=== PATIENT | female | born 1980 | race Caucasian/White ===

== ENCOUNTER 2019-11-24 16:54 | Emergency (ER) | payer OTHER, MEDICAID, SELFPAY ==
[2019-11-24 16:58] VITALS: BP 127/80; PULSE 77; RESP 16; TEMP 37; O2SAT 100
--- NOTE | 2019-11-24 17:02 | DI.US.S_ITS ---
PROCEDURE: US PERIPH VENOUS LOW EXTREM RT INDICATIONS: r/o dvt TECHNIQUE: Real-time imaging, as well as color and pulse Doppler interrogation, were performed of the lower extremity deep veins from the inguinal ligament to the popliteal fossa. COMPARISON: None. FINDINGS: The common femoral, femoral and popliteal veins are normally compressible, and free of intraluminal thrombus. Color and pulse Doppler demonstrate normal phasic intraluminal flow. There is normal augmentation response to distal compression maneuver. There is an irregularly marginated anechoic fluid collection within the lateral aspect of the popliteal fossa which measures 2.9 x 6.8 x 3.1 cm. IMPRESSION: 1. No deep vein thrombosis of the right lower extremity. 2. Right Hutton's cyst. Dictated by: Rosemary Garcia M.D. on 11/24/2019 at 17:42 Approved by: Rosemary Garcia M.D. on 11/24/2019 at 17:44
--- NOTE | 2019-11-24 18:23 | ED.EXTPRO ---
HPI - Extremity Problem General Chief complaint: Extremity Problem,Nontraumatic Stated complaint: thinks she has a blood clot right leg, recent surg Time Seen by Provider: 11/24/19 18:02 Source: patient Mode of arrival: Ambulatory Limitations: no limitations History of Present Illness HPI Narrative: 39-year-old female recently had a tonsillectomy here for evaluation of swelling and pain to her right lower extremity/right calf. She is concerned about a blood clot. No skin changes. No fevers. No chest pain. No shortness of breath. Related Data Home Medications Medication Instructions Recorded Confirmed acetaminophen [Pain Reliever Extra 500 mg PO Q4-6H PRN 11/24/19 11/24/19 Strength] bupropion HCl 300 mg PO DAILY 11/24/19 11/24/19 cholecalciferol (vitamin D3) 1,000 unit PO DAILY 11/24/19 11/24/19 ergocalciferol (vitamin D2) 50,000 unit PO QWEEK 11/24/19 11/24/19 [Vitamin D2] escitalopram oxalate 20 mg PO DAILY 11/24/19 11/24/19 gabapentin 600 mg PO TID 11/24/19 ibuprofen 600 mg PO Q4H PRN 11/24/19 11/24/19 lidocaine HCl [Lidocaine Viscous] 11/24/19 nicotine 14 mg TOPICAL DAILY 11/24/19 11/24/19 ondansetron 4 mg PO BID 11/24/19 11/24/19 oxycodone 5 mg PO Q4-6H PRN 11/24/19 11/24/19 sennosides [Senna Laxative] 17.2 mg PO DAILY 11/24/19 11/24/19 Previous Rx's Medication Instructions Recorded lidocaine HCl [Lidocaine Viscous] 1 applictn MM TID PRN #100 ml 11/24/19 Allergies Allergy/AdvReac Type Severity Reaction Status Date / Time codeine [CODEINE] Allergy Unknown Unverified 03/12/18 12:35 Review of Systems Constitutional Constitutional: Denies fever(s) and Denies headache(s) ENT Ears, Nose, Mouth, and Throat: Denies headache(s) Cardiovascular Cardiovascular: Denies chest pain and Denies dyspnea Respiratory Respiratory: Denies dyspnea Gastrointestinal Gastrointestinal: Denies abdominal pain, Denies nausea and Denies vomiting Musculoskeletal Musculoskeletal: Denies myalgias and Denies arthralgias Comments: Swelling right lower extremity Integumentary/Breasts Skin/Breast: Denies rash Neurologic Neurologic: Denies behavioral changes and Denies headache(s) Psychiatric Psychiatric: Denies behavioral changes Hematologic/Lymphatic Hematologic/Lymphatic: Denies easy bleeding and Denies easy bruising Patient History Medical History Allergic reaction (Inactive) Radial head fracture, closed (Inactive) Social History Smoking Status: Current every day smoker Smoking Status: Current every day smoker alcohol intake frequency: a few times a week Exam Initial Vital Signs Initial Vital Signs: Vital Signs Temperature 98.6 F 11/24/19 16:58 Pulse Rate 77 11/24/19 16:58 Respiratory Rate 16 11/24/19 16:58 Blood Pressure 127/80 11/24/19 16:58 Pulse Oximetry 100 11/24/19 16:58 Const General: cooperative, healthy appearing, comfortable and well developed Resp Effort & Inspection: normal respiratory effort Cardio Rate: regular rate Pulses: dorsalis pedis present on the right Skin Lesions: no lesions Rashes: no rashes Neuro General: alert and awake Speech: speech normal Gait: normal gait Sensory Exam: no sensory deficits noted Extrem Other: Patient with swelling to the right lower extremity from the knees to the mid foot. Says more than the left lower extremity. Has 1+ pitting edema. Psych Appearance: grossly normal and well kempt Course Orders Ordered: ED Orders 11/24/19 17:02 US periph venous low extrem rt Stat Vital Signs Vital signs: Vital Signs - 8 hr 11/24/19 16:58 Temperature 98.6 F Pulse Rate 77 Respiratory Rate 16 Blood Pressure 127/80 Pulse Oximetry 100 MDM - Extremity (Nontraumatic) Imaging Data US - DVT: Radiologist's Impression: [address] [address] Ultrasound Report Signed Patient: Arnol Burnham#: [id number] : 1980Acct:[id number] Age/Sex: 39 / FDate of Service: 11/24/19 Loc: ED Accession Number: [id number] Procedure: US periph venous low extrem rt Ordering Provider: Mei Coyle MD PROCEDURE: US PERIPH VENOUS LOW EXTREM RT INDICATIONS: r/o dvt TECHNIQUE: Real-time imaging, as well as color and pulse Doppler interrogation, were performed of the lower extremity deep veins from the inguinal ligament to the popliteal fossa. COMPARISON: None. FINDINGS: The common femoral, femoral and popliteal veins are normally compressible, and free of intraluminal thrombus. Color and pulse Doppler demonstrate normal phasic intraluminal flow. There is normal augmentation response to distal compression maneuver. There is an irregularly marginated anechoic fluid collection within the lateral aspect of the popliteal fossa which measures 2.9 x 6.8 x 3.1 cm. IMPRESSION: 1. No deep vein thrombosis of the right lower extremity. 2. Right Hutton's cyst. Dictated by: Rosemary Garcia M.D. on 11/24/2019 at 17:42 Approved by: Rosemary Garcia M.D. on 11/24/2019 at 17:44 MDM Narrative Medical decision making narrative: Ultrasound shows a Hutton cyst which I feels an incidental finding. She does have swelling to right lower extremity. There's no signs of a DVT on the ultrasound. Exam is not consistent with cellulitis. Did not know the exact etiology of the swelling. She does not have shortness of breath. No chest pain. I feel that since the symptoms have been going on for such a short period of time and is isolated unilateral that we will hold on any diuretics for now. We did discuss the use of compression stockings and keeping her leg elevated and walking as much as possible. She was given return precautions and follow-up instructions. She expressed understanding and agreement plan. Discharge Plan Departure Patient Disposition: Home Clinical Impression: Edema Qualifiers: Edema type: unspecified Qualified Code(s): R60.9 - Edema, unspecified Hutton's cyst Qualifiers: Laterality: right Qualified Code(s): M71.21 - Synovial cyst of popliteal space [Hutton], right knee Discharge Date/Time: 11/24/19 18:35 Instructions: DI for Peripheral Edema, Unilateral Activity Restrictions/Additional Instructions: Keep your right leg elevated and I encourage you to walk. Keep all of your scheduled medical appointments as scheduled. Return to the ER for any new or worsening symptoms. Prescriptions: New Lidocaine Viscous 2 % solution 1 applictn MM TID PRN (Reason: pain) Qty: 100 RF: 0 No Action sennosides [Senna Laxative] 8.6 mg tablet 17.2 mg PO DAILY RF: 0 gabapentin 600 mg tablet 600 mg PO TID RF: 0 nicotine 14 mg/24 hr patch 24 hour 14 mg topical DAILY RF: 0 acetaminophen [Pain Reliever Extra Strength] 500 mg tablet 500 mg PO Q4-6H PRN (Reason: pain) RF: 0 Lidocaine Viscous 2 % solution RF: 0 ergocalciferol (vitamin D2) [Vitamin D2] 50,000 unit capsule 50,000 unit PO QWEEK RF: 0 ibuprofen 600 mg tablet 600 mg PO Q4H PRN (Reason: pain) RF: 0 ondansetron 4 mg tablet,disintegrating 4 mg PO BID RF: 0 oxycodone 5 mg tablet 5 mg PO Q4-6H PRN (Reason: pain) RF: 0 escitalopram oxalate 20 mg tablet 20 mg PO DAILY RF: 0 bupropion HCl 300 mg tablet extended release 24 hr 300 mg PO DAILY RF: 0 cholecalciferol (vitamin D3) 25 mcg (1,000 unit) tablet 1,000 unit PO DAILY RF: 0
== END 2019-11-24 18:35 | disposition home or self-care (01) ==
PROVIDERS: Emergency Provider Emergency Medicine
DX: M71.21 Synovial cyst of popliteal space [Baker], right knee (principal); R60.0 Localized edema
CPT/HCPCS: 93971; 99282

== ENCOUNTER 2019-11-25 10:32 | Emergency (ER) | payer OTHER, MEDICAID, SELFPAY ==
[2019-11-25 10:34] VITALS: BP 154/72; PULSE 60; RESP 18; TEMP 36.7; O2SAT 99; BMI 40.5
--- NOTE | 2019-11-25 10:56 | ED.RECABL ---
HPI - Recheck/Abnormal Lab/Rx General Chief Complaint: Recheck/Abnormal Lab/Rx Stated Complaint: tonsilectomy 11/18-bleeding today Time Seen by Provider: 11/25/19 10:45 Source: patient Mode of arrival: Ambulatory History of Present Illness HPI narrative: The patient is a 39-year-old female who is post tonsillectomy day number 7 presenting with bleeding. She says this morning she was coughing up and having mouthfuls of blood the bleeding has now stopped but she still feels like it's using and she is swallowing it. She is maintaining her airway without any difficulty. No fevers or chills. Her surgery was done at the [facility]. Related Data Home Medications Medication Instructions Recorded Confirmed acetaminophen [Pain Reliever Extra 500 mg PO Q4-6H PRN 11/24/19 11/24/19 Strength] bupropion HCl 300 mg PO DAILY 11/24/19 11/24/19 cholecalciferol (vitamin D3) 1,000 unit PO DAILY 11/24/19 11/24/19 ergocalciferol (vitamin D2) 50,000 unit PO QWEEK 11/24/19 11/24/19 [Vitamin D2] escitalopram oxalate 20 mg PO DAILY 11/24/19 11/24/19 gabapentin 600 mg PO TID 11/24/19 ibuprofen 600 mg PO Q4H PRN 11/24/19 11/24/19 lidocaine HCl [Lidocaine Viscous] 11/24/19 nicotine 14 mg TOPICAL DAILY 11/24/19 11/24/19 ondansetron 4 mg PO BID 11/24/19 11/24/19 oxycodone 5 mg PO Q4-6H PRN 11/24/19 11/24/19 sennosides [Senna Laxative] 17.2 mg PO DAILY 11/24/19 11/24/19 Previous Rx's Medication Instructions Recorded lidocaine HCl [Lidocaine Viscous] 1 applictn MM TID PRN #100 ml 11/24/19 Allergies Allergy/AdvReac Type Severity Reaction Status Date / Time codeine [CODEINE] Allergy Unknown Unverified 03/12/18 12:35 Review of Systems Review of Systems ROS Unobtainable: All systems reviewed & are unremarkable except as noted in HPI and below Constitutional Constitutional: Denies chills, Denies fever(s), Denies lethargy and Denies weakness ENT Ears, Nose, Mouth, and Throat: Reports as per HPI Cardiovascular Cardiovascular: Denies chest pain, Denies irregular heart rhythm, Denies lightheadedness, Denies palpitations, Denies dyspnea, Denies dyspnea on exertion and Denies orthopnea Respiratory Respiratory: Denies cough, Denies dyspnea, Denies dyspnea on exertion and Denies wheezing Genitourinary Genitourinary: Denies hematuria, Denies flank pain, Denies urinary incontinence and Denies urinary urgency Musculoskeletal Musculoskeletal: Denies back pain, Denies muscle weakness, Denies numbness and Denies tingling Integumentary/Breasts Skin/Breast: Denies pruritus, Denies erythema, Denies rash and Denies wounds Neurologic Neurologic: Denies numbness, Denies tingling and Denies weakness Endocrine Endocrine: Denies palpitations Allergic/Immunologic Allergic/Immunologic: Denies wheezing Patient History Medical History Allergic reaction (Inactive) Radial head fracture, closed (Inactive) Social History Smoking Status: Current every day smoker Smoking Status: Current every day smoker alcohol intake frequency: a few times a week Exam Initial Vital Signs Initial Vital Signs: Vital Signs Temperature 98.1 F 11/25/19 10:34 Pulse Rate 60 11/25/19 10:34 Respiratory Rate 18 11/25/19 10:34 Blood Pressure 154/72 H 11/25/19 10:34 Pulse Oximetry 99 11/25/19 10:34 GENERAL: Well-appearing, well-nourished and in no acute distress. HEENT: Head atraumatic,EOMI, pupils reactive, face symmetric, moist mucous membranes PHARYNX: Is oozing noted on the left tonsil no pulsating blood managing secretions, no uvula edema CARDIOVASCULAR: Regular rate and rhythm without murmurs, rubs or gallops. RESPIRATORY: Breath sounds equal bilaterally, no wheezes rales or rhonchi. EXTREMITIES: Normal range of motion, no clubbing or edema. Neurovascularly intact NEUROLOGICAL: Alert and oriented x4. SKIN: Warm, dry, no laceration, no petechiae, no rashes or lesions. Course Orders Ordered: Discontinued Medications Tranexamic Acid (Cyklokapron) 500 mg MM NOW ONE Stop: 11/25/19 10:57 Last Admin: 11/25/19 11:11 Dose: 500 mg Documented by: ASIYA Vital Signs Vital signs: Vital Signs - 8 hr 11/25/19 10:34 11/25/19 11:00 11/25/19 11:14 Temperature 98.1 F Pulse Rate 60 58 L 62 Respiratory Rate 18 18 14 Blood Pressure 154/72 H Blood Pressure [Left Arm] 126/71 Pulse Oximetry 99 97 98 MDM - Recheck/Abnormal Lab/Rx MDM Narrative Medical decision making narrative: Nebulized Txa 500mg for slight oozing. Patient tolerated it well and bleeding has stopped. Recommend follow-up with ENT at [facility] as scheduled. I discussed all findings with the patient, Education has been performed regarding treatment plan, diagnosis, warning signs and symptoms and all concerns have been addressed. Verbally agree with and understood all of the above. Discharge Plan Departure Patient Disposition: Home Clinical Impression: Post-tonsillectomy hemorrhage Discharge Date/Time: 11/25/19 11:50 Instructions: DI for Tonsillectomy-Adult Activity Restrictions/Additional Instructions: *You have been diagnosed with post tonsillectomy bleeding *What to do: It is not uncommon to have bleeding at this stage. Increase fluid intake avoid is sharp crunchy foods *Continue to take medications as directed *Follow up with your primary care provider in 2-3 days *Return to ER if you should have a recurrent persistent bleeding, difficulty breathing or any new, worsening or concerning symptoms Prescriptions: No Action sennosides [Senna Laxative] 8.6 mg tablet 17.2 mg PO DAILY RF: 0 gabapentin 600 mg tablet 600 mg PO TID RF: 0 nicotine 14 mg/24 hr patch 24 hour 14 mg topical DAILY RF: 0 acetaminophen [Pain Reliever Extra Strength] 500 mg tablet 500 mg PO Q4-6H PRN (Reason: pain) RF: 0 Lidocaine Viscous 2 % solution RF: 0 ergocalciferol (vitamin D2) [Vitamin D2] 50,000 unit capsule 50,000 unit PO QWEEK RF: 0 ibuprofen 600 mg tablet 600 mg PO Q4H PRN (Reason: pain) RF: 0 ondansetron 4 mg tablet,disintegrating 4 mg PO BID RF: 0 oxycodone 5 mg tablet 5 mg PO Q4-6H PRN (Reason: pain) RF: 0 escitalopram oxalate 20 mg tablet 20 mg PO DAILY RF: 0 bupropion HCl 300 mg tablet extended release 24 hr 300 mg PO DAILY RF: 0 cholecalciferol (vitamin D3) 25 mcg (1,000 unit) tablet 1,000 unit PO DAILY RF: 0 Lidocaine Viscous 2 % solution 1 applictn MM TID PRN (Reason: pain) Qty: 100 RF: 0
[2019-11-25 11:00] VITALS: BP 126/71; PULSE 58; RESP 18; O2SAT 97
[2019-11-25] MEDS: TRANEXAMIC ACID 1,000 MG VIAL 500 MG MM (11:11)
[2019-11-25 11:14] VITALS: PULSE 62; RESP 14; O2SAT 98
--- NOTE | 2019-11-25 11:28 | RT ---
5CC'S (500MG) OF TRANEXAMIC ACID DELIVERED TO PT VIA NEBULIZATION PER WRITTEN ORDER FOR BLEEDING OF TONSILLECTOMY SITE. NO ADVERSE REACTION NOTED. TREATMENT WELL TOLERATED.
== END 2019-11-25 11:50 | disposition home or self-care (01) ==
PROVIDERS: Emergency Provider Emergency Medicine
DX: J95.830 Postprocedural hemorrhage of a respiratory system organ or structure following a respiratory system procedure (principal)
CPT/HCPCS: 94640; 99281; 99283

== ENCOUNTER 2020-07-25 13:04 | Emergency (ER) | payer OTHER, MEDICAID, SELFPAY ==
[2020-07-25] VITALS (8 sets, daily range): BP systolic 141–159; BP diastolic 74–91; PULSE 63–70; RESP 18–26; TEMP 36.3–37; O2SAT 99–100; BMI 41.5
[2020-07-25] MEDS: ONDANSETRON 4 MG ODT SL (17:41)
[2020-07-25] MEDS: ACETAMINOPHEN 325 MG TABLET 650 MG PO (17:42)
[2020-07-25] MEDS: LIDOCAINE 2% W/EPI INJ 20 ML INJ (17:43)
[2020-07-25] MEDS: IBUPROFEN 400 MG TABLET PO (17:43)
[2020-07-25 18:29] LABS: Add Manual Diff / Slide Review NO; Basophils Absolute Auto 100 /uL (0-100); Eosinophils Absolute Auto 200 /uL (0-450); Hematocrit 36.1 % (36-46); Hemoglobin 12.5 g/dL (12.0-16.0); Lymphocytes Absolute Auto 3700 /uL (1100-4500); Lymphocytes Percent Auto 44.4 % (25-40); Mean Corpuscular HGB Conc 34.6 % (30-36); Mean Corpuscular Hemoglobin 33.9 PG (26-34); Mean Corpuscular Volume 97.8 fL (80-100); Monocytes Absolute Auto 700 /uL (0-900); Monocytes Percent Auto 8.6 % (3-14); Neutrophils Absolute Auto 3700 /uL (1500-7000); Platelet Count 325 X10^3/uL (150-400); Red Blood Cell Count 3.69 X10^6/uL (4.0-5.2); Red Cell Distribution Width 13.4 % (11.6-14.8); White Blood Cell Count 8.3 X10^3/uL (4.5-11.0)
[2020-07-25] MEDS: HYDROCODONE/ACET 5/325 TABLET 1 TAB PO (18:40)
[2020-07-25 18:47] LABS: Lactate (Lactic Acid) 0.8 mmol/L (0.7-2.1)
[2020-07-25] MEDS: BACITRACIN OINT 0.9 GM PCKT 1 APPLIC TOP (19:58)
[2020-07-25] MEDS: AMOXICILLIN/CLAV 875/125 MG 1 TAB PO (19:58)
[2020-07-25] MEDS: MORPHINE 4 MG/ML INJ IM (19:58)
--- NOTE | 2020-07-26 01:29 | ED.SKABFB ---
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 She reports feeling tired, nauseated and had intermittent fever at home with T max of 100.5. Patient reports the lesion has been giving her headache which radiating up to top and left side of head. She thought is going to have a pimple and her sister tried to pop it as it was appeared as green. Patient reports no drainage noted. She had taken ibuprofen and gabapentin at home without much improvement. She reports pain as 7/10 and it hurts to turn her head to left side or laying on affected site. 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 Blue at [facility] in [place] and she is visiting to take care of parents in [facility]. Patient denies having similar lesions on her scalp in the past. Patient denies having any infectious lesions in her scalp, cough, sore throat, runny nose, sinus pain but reports piercing left ear pain. Patient reports several days ago she had resolved small oral lesion in right-side of her lower gum. She reports when she has lesions like this in other areas she gets injection of Kenalog which helps. Related Data Home Medications Medication Instructions Recorded Confirmed acetaminophen [Pain Reliever Extra 500 mg PO Q4-6H PRN 11/24/19 11/24/19 Strength] bupropion HCl 300 mg PO DAILY 11/24/19 11/24/19 cholecalciferol (vitamin D3) 1,000 unit PO DAILY 11/24/19 11/24/19 ergocalciferol (vitamin D2) 50,000 unit PO QWEEK 11/24/19 11/24/19 [Vitamin D2] escitalopram oxalate 20 mg PO DAILY 11/24/19 11/24/19 gabapentin 600 mg PO TID 11/24/19 ibuprofen 600 mg PO Q4H PRN 11/24/19 11/24/19 lidocaine HCl [Lidocaine Viscous] 11/24/19 nicotine 14 mg TOPICAL DAILY 11/24/19 11/24/19 ondansetron 4 mg PO BID 11/24/19 11/24/19 oxycodone 5 mg PO Q4-6H PRN 11/24/19 11/24/19 sennosides [Senna Laxative] 17.2 mg PO DAILY 11/24/19 11/24/19 Previous Rx's Medication Instructions Recorded lidocaine HCl [Lidocaine Viscous] 1 applictn MM TID PRN #100 ml 11/24/19 amoxicillin-pot clavulanate 1 tab PO BID 7 Days #14 tab 07/25/20 [Augmentin] hydrocodone-acetaminophen [Evergreen] 1 tab PO Q8H PRN #7 tab 07/25/20 Allergies Allergy/AdvReac Type Severity Reaction Status Date / Time codeine [CODEINE] Allergy Unknown Verified 07/25/20 18:38 Review of Systems <ESTELITA Smith - Last Filed: 07/26/20 02:12> Review of Systems Narrative: General: HPI HEENT: Denies sinus pain, (+) left ear pain, sore throat, difficulty swallowing, dizziness. Respiratory: Denies dyspnea, cough, wheezing, hemoptysis, sputum. Cardiovascular: Denies chest pain, palpitations, orthopnea, edema. Gastrointestinal: Denies (+) nausea, vomiting, abdominal pain, diarrhea, constipation, melena. : Denies dysuria, frequency, incontinence, hematuria, urinary retention. Musculoskeletal: Denies weakness, joint pain or bony pain. Skin: See HPI Neurologic: Denies weakness, (+) headache, numbness, change in speech, confusion, seizures, incoordination. Psychiatric: No concerning psychosocial issues. 12-point review of systems is negative except for those stated above. Patient History <ESTELITA Smith - Last Filed: 07/26/20 02:12> Medical History Allergic reaction (Inactive) Radial head fracture, closed (Inactive) Suppurative hidradenitis (Acute) Social History Smoking Status: Current every day smoker Smoking Status: Current every day smoker alcohol intake frequency: a few times a week Substance Use Type: does not use Exam <Efrain ESTELITA Murillo - Last Filed: 07/26/20 02:12> Narrative Exam Narrative: GEN: Alert, oriented x 3, well appearing and nourished, nontoxic appearing. Somewhat anxious and in mild distress from discomfort but . Head: Normal cephalic, atraumatic. No scalp or temporal tenderness, palpable mass or rash. EYES: Pupils are equal, round, and reactive to light and accommodation. Extraocular muscles are intact bilaterally. There is no subconjunctival hemorrhage, exudate and sclera non-icteric. ENT: Bilateral auditory canals clear and left tympanic membranes clear injection. Hearing grossly intact. Nose without bleeding, purulent discharge or deviation. Facial sinuses nontender to palpate. Mucous membrane moist, no mucosal lesion. Throat without erythema, tonsillar hypertrophy or exudate. Uvula in midline, airway patent. Neck: Trachea in midline. No JVD, non-tender without lymphadenopathy. No masses or thyroid megaly. Supple, non-tender and no meningeal signs. CARDIAC: Normal regular rate and rhythm without murmurs, gallops, or rubs. No chest wall tenderness. No peripheral edema, cyanosis or pallor. Capillary refill is less than 2 seconds. RESPIRATORY: Lungs are clear to auscultate bilaterally. No cough, wheezes, rales, or rhonchi. No stridor, respiratory distress, increase work of breathing, or accessary muscle used. ABD: Abdomen soft, nontender and non-distended. No guarding or rebound tenderness to palpate. Bowel sounds are normal in all 4 quadrants. There is no palpable masses or organomegaly. EXT: Full painless ROM of all extremities with no loss of sensation, strength, effusion or edema. SKIN: Soft approximate 2cm nodule with pinpoint with yellow papule in the middle in left occipital region without erythema, drainage or overt warmth. Exquisite tenderness to palpate. Warm, dry, normal color for patient. BACK: Nontender without deformity or crepitance. No flank tenderness. NEUROLOGICAL: Alert and oriented to place, time and person. Sensation and motor function intact bilaterally. No facial droops, dysphasia. PSYCHIATRIC: Good judgement and reason, without hallucinations, abnormal affect or abnormal behaviors during the examination. Patient is not suicidal. Initial Vital Signs Initial Vital Signs: Vital Signs Temperature 97.3 F L 07/25/20 13:15 Pulse Rate 67 07/25/20 13:15 Respiratory Rate 18 07/25/20 13:15 Blood Pressure 141/80 H 07/25/20 13:15 Pulse Oximetry 99 07/25/20 13:15 <Alessandra Suh MD - Last Filed: 07/26/20 18:55> Initial Vital Signs Initial Vital Signs: Vital Signs Temperature 97.3 F L 07/25/20 13:15 Pulse Rate 67 07/25/20 13:15 Respiratory Rate 18 07/25/20 13:15 Blood Pressure 141/80 H 07/25/20 13:15 Pulse Oximetry 99 07/25/20 13:15 Procedures <ESTELITA Smith - Last Filed: 07/26/20 02:12> Abscess I/D I&D #1: Site: scalp Local Anesthetic: lidocaine 2% and with epi Amount of anesthesia used (mL): 1.5 Technique: needle aspiration and incised with #11 blade Amount of fluid expressed (mL): 0 Irrigation: Yes Packing used?: none Scores <ESTELITA Smith - Last Filed: 07/26/20 02:12> GCS Dimitry coma scale eye opening: Spontaneous [place] coma scale verbal response: Orientated [place] coma scale motor response: Obey commands Dimitry coma scale total score: 15 qSOFA Altered Mental Status (GCS <15): No Respiratory rate greater than/equal to 22: No Systolic blood pressure less than or equal to 100: No qSOFA Total: 0 0-1 Not High Risk 1-3 High risk Course <ESTELITA Smith - Last Filed: 07/26/20 02:12> Orders Ordered: Discontinued Medications Acetaminophen (Tylenol) 650 mg PO NOW ONE Stop: 07/25/20 17:01 Last Admin: 07/25/20 17:42 Dose: 650 mg Documented by: KENNEY Hydrocodone Bitart/Acetaminophen (Evergreen 5/325) 1 tab PO NOW ONE Stop: 07/25/20 18:10 Last Admin: 07/25/20 18:40 Dose: 1 tab Documented by: KENNEY Amoxicillin/Clavulanate Potassium (Augmentin 875-125 Mg) 1 tab PO NOW ONE Stop: 07/25/20 19:49 Last Admin: 07/25/20 19:58 Dose: 1 tab Documented by: ANTONIO Bacitracin (Bacitracin) 1 applic TOP NOW ONE Stop: 07/25/20 19:04 Last Admin: 07/25/20 19:58 Dose: 1 applic Documented by: ANTONIO Ibuprofen (Advil) 400 mg PO NOW ONE Stop: 07/25/20 17:01 Last Admin: 07/25/20 17:43 Dose: 400 mg Documented by: KENNEY Lidocaine/Epinephrine (Xylocaine 2% W/Epi) 20 ml INJ INTRA-OP ONE Stop: 07/25/20 17:01 Last Admin: 07/25/20 17:43 Dose: 20 ml Documented by: KENNEY Morphine Sulfate (Morphine) 4 mg IM NOW ONE Stop: 07/25/20 19:49 Last Admin: 07/25/20 19:58 Dose: 4 mg Documented by: ANTONIO Ondansetron HCl (Zofran Odt) 4 mg SL NOW ONE Stop: 07/25/20 17:01 Last Admin: 07/25/20 17:41 Dose: 4 mg Documented by: KENNEY Vital Signs Vital signs: Vital Signs - 8 hr 07/25/20 17:46 07/25/20 18:00 07/25/20 18:30 Temperature Pulse Rate 63 68 70 Respiratory Rate 24 18 25 H Blood Pressure 143/81 H 149/87 H 143/84 H Pulse Oximetry 99 100 100 07/25/20 19:00 07/25/20 20:07 Temperature 98.6 F Pulse Rate 70 67 Respiratory Rate 20 18 Blood Pressure 142/74 H 159/91 H Pulse Oximetry 99 100 <Alessandra Suh MD - Last Filed: 07/26/20 18:55> Orders Ordered: Discontinued Medications Acetaminophen (Tylenol) 650 mg PO NOW ONE Stop: 07/25/20 17:01 Last Admin: 07/25/20 17:42 Dose: 650 mg Documented by: KENNEY Hydrocodone Bitart/Acetaminophen (Evergreen 5/325) 1 tab PO NOW ONE Stop: 07/25/20 18:10 Last Admin: 07/25/20 18:40 Dose: 1 tab Documented by: KENNEY Amoxicillin/Clavulanate Potassium (Augmentin 875-125 Mg) 1 tab PO NOW ONE Stop: 07/25/20 19:49 Last Admin: 07/25/20 19:58 Dose: 1 tab Documented by: ANTONIO Bacitracin (Bacitracin) 1 applic TOP NOW ONE Stop: 07/25/20 19:04 Last Admin: 07/25/20 19:58 Dose: 1 applic Documented by: ANTONIO Ibuprofen (Advil) 400 mg PO NOW ONE Stop: 07/25/20 17:01 Last Admin: 07/25/20 17:43 Dose: 400 mg Documented by: KENNEY Lidocaine/Epinephrine (Xylocaine 2% W/Epi) 20 ml INJ INTRA-OP ONE Stop: 07/25/20 17:01 Last Admin: 07/25/20 17:43 Dose: 20 ml Documented by: KENNEY Morphine Sulfate (Morphine) 4 mg IM NOW ONE Stop: 07/25/20 19:49 Last Admin: 07/25/20 19:58 Dose: 4 mg Documented by: ANTONIO Ondansetron HCl (Zofran Odt) 4 mg SL NOW ONE Stop: 07/25/20 17:01 Last Admin: 07/25/20 17:41 Dose: 4 mg Documented by: KENNEY Vital Signs Vital signs: Vital Signs - 8 hr 07/25/20 17:46 07/25/20 18:00 07/25/20 18:30 Temperature Pulse Rate 63 68 70 Respiratory Rate 24 18 25 H Blood Pressure 143/81 H 149/87 H 143/84 H Pulse Oximetry 99 100 100 07/25/20 19:00 07/25/20 20:07 Temperature 98.6 F Pulse Rate 70 67 Respiratory Rate 20 18 Blood Pressure 142/74 H 159/91 H Pulse Oximetry 99 100 MDM - Skin/Abscess/Foreign Bdy <Efrain Ees-ESTELITA Mo - Last Filed: 07/26/20 02:12> Differential Diagnosis Differential diagnosis: Likely abscess of skin or subcutaneous tissue, cellulitis and other (Lymphadenopathy, otitis media) Medical Records Attestation: I reviewed the patient's medical records. Lab Data Attestation: I reviewed the patient's lab results. Result diagrams: 07/25/20 18:20 Labs: Lab Results 07/25/20 07/25/20 Range/Units 18:20 18:20 WBC 8.3 (4.5-11.0) X10^3/uL RBC 3.69 L (4.0-5.2) X10^6/uL Hgb 12.5 (12.0-16.0) g/dL Hct 36.1 (36-46) % MCV 97.8 (80-100) fL MCH 33.9 (26-34) PG MCHC 34.6 (30-36) % RDW 13.4 (11.6-14.8) % Plt Count 325 (150-400) X10^3/uL Neut % (Auto) 44.0 L (50-75) % Lymph % (Auto) 44.4 H (25-40) % [place] % (Auto) 8.6 (3-14) % Eos % (Auto) 2.0 (2-4) % Baso % (Auto) 1.0 (0-2) % Neut # (Auto) 3700 (8731-6530) /uL Lymph # (Auto) 3700 (2555-0174) /uL [place] # (Auto) 700 (0-900) /uL Eos # (Auto) 200 (0-450) /uL Baso # (Auto) 100 (0-100) /uL Lactate 0.8 (0.7-2.1) mmol/L MDM Narrative Medical decision making narrative: This is a 39 year female presents to ED with soft nodule on left side posterior occipital region with incresing pain for last 4 days. Patient reports constitutional symptoms such as nausea, low-grade fever, and fatigue. Patient reports she has a history of several episodes of hidrandenitis supprativa and see lever miller and [facility]. Physical exam appreciated approximately 2.5 cm soft nodule without overt signs of cellulitis such as erythema but was tender to palpate and warmth. Given the patient had several episodes of skin infection, the nodule was attempted to be drained by aspiration and a tiny incision but without success. Patient was treated with Tylenol 650, ibuprofen 400 mg, Zofran 4 mg ODT without much improvement. She was given additional 1 tab of Evergreen for pain. Dr. Suh staffed with the patient with history and bedside assessment and it was recommended to treat discomfort as this appears to be lymph node adenopathy. Patient reports severe left ear pain during ED stay which she initially did not endorsed. Patient informed the nurse during discharge patient's pain is not well managed and she is in discomfort and has increased ear pain. Patient was reassessed and treated for left middle ear infection which appears to be slightly injected in tympanic membrane and additional morphine 4 mg IM injection for pain and 1st dose of Augmentin. Patient advised to use [id number] Tylenol or Motrin as needed for pain as baseline treatment and she was discharged to home with few tabs of Evergreen along narcotic medication precautions and Augmentin b.i.d. dose for 7 days. Return precautions were discussed with patient and advised to keep the area clean and dry and to use bacitracin twice a day until puncture wound heals. Patient verbalized understanding and agreement with the treatment plan. 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 Advised to take additional Tylenol to make it 650-975mg at a time. She verbalized understanding and states will bean picker machine operator medications tomorrow. Advised to use cool pack as needed on affected site as well. <Alessandra Suh MD - Last Filed: 07/26/20 18:55> Lab Data Labs: Lab Results 07/25/20 07/25/20 Range/Units 18:20 18:20 WBC 8.3 (4.5-11.0) X10^3/uL RBC 3.69 L (4.0-5.2) X10^6/uL Hgb 12.5 (12.0-16.0) g/dL Hct 36.1 (36-46) % MCV 97.8 (80-100) fL MCH 33.9 (26-34) PG MCHC 34.6 (30-36) % RDW 13.4 (11.6-14.8) % Plt Count 325 (150-400) X10^3/uL Neut % (Auto) 44.0 L (50-75) % Lymph % (Auto) 44.4 H (25-40) % [place] % (Auto) 8.6 (3-14) % Eos % (Auto) 2.0 (2-4) % Baso % (Auto) 1.0 (0-2) % Neut # (Auto) 3700 (9965-9141) /uL Lymph # (Auto) 3700 (2291-2496) /uL [place] # (Auto) 700 (0-900) /uL Eos # (Auto) 200 (0-450) /uL Baso # (Auto) 100 (0-100) /uL Lactate 0.8 (0.7-2.1) mmol/L Discharge Plan Departure Patient Disposition: Home Clinical Impression: Lymph nodes enlarged Otitis media Qualifiers: Otitis media type: unspecified Laterality: left Qualified Code(s): H66.92 - Otitis media, unspecified, left ear Discharge Date/Time: 07/25/20 20:08 Instructions: DI for Lymphadenopathy, DI for Middle Ear Infection-Adult Activity Restrictions/Additional Instructions: You have been diagnosed with [left-sided posterior occipital lymph node enlargement and middle ear infection in left-sided. Attempted to aspirate abscess without success. No elevation in white blood cell count but mildy lymph count elevation of 44. and normal lactate. ]. What to do: *Take your medications as directed. Please take [id number] Tylenol and or Motrin as needed for discomfort. Narcotic medication Evergreen for severe pain. Evergreen can cause drowsiness and constipation so please take precautions. Do not drink alcohol, drive, or operate heavy equipments. Tylenol 650-1000 mg up to 3 to 4 times a day as needed for discomfort. Ibuprofen 400 mg up to 3 to 4 times a day as needed for discomfort and please take it with food to decrease GI irritation. Please take Augmentin for next 7 days twice a day for ear infection. *Follow up with your primary care provider in 2-3 days, call for an appointment. Let them know you were seen in the ED and that we asked you to be seen in follow up. *Return to ED if you have any new, worsening, or concerning symptoms, such as [fever, chills, worsening pain, chest pain, breathing difficulty, unable to tolerate fluids, or any acute concerns]. Prescriptions: New hydrocodone-acetaminophen [Evergreen] 5-325 mg tablet 1 tab PO Q8H PRN (Reason: pain) Qty: 7 RF: 0 amoxicillin-pot clavulanate [Augmentin] 875-125 mg tablet 1 tab PO BID 7 Days Qty: 14 RF: 0 No Action sennosides [Senna Laxative] 8.6 mg tablet 17.2 mg PO DAILY RF: 0 gabapentin 600 mg tablet 600 mg PO TID RF: 0 nicotine 14 mg/24 hr patch 24 hour 14 mg topical DAILY RF: 0 acetaminophen [Pain Reliever Extra Strength] 500 mg tablet 500 mg PO Q4-6H PRN (Reason: pain) RF: 0 Lidocaine Viscous 2 % solution RF: 0 ergocalciferol (vitamin D2) [Vitamin D2] 50,000 unit capsule 50,000 unit PO QWEEK RF: 0 ibuprofen 600 mg tablet 600 mg PO Q4H PRN (Reason: pain) RF: 0 ondansetron 4 mg tablet,disintegrating 4 mg PO BID RF: 0 oxycodone 5 mg tablet 5 mg PO Q4-6H PRN (Reason: pain) RF: 0 escitalopram oxalate 20 mg tablet 20 mg PO DAILY RF: 0 bupropion HCl 300 mg tablet extended release 24 hr 300 mg PO DAILY RF: 0 cholecalciferol (vitamin D3) 25 mcg (1,000 unit) tablet 1,000 unit PO DAILY RF: 0 Lidocaine Viscous 2 % solution 1 applictn MM TID PRN (Reason: pain) Qty: 100 RF: 0 Referrals: [facility] [Outside] <Alessandra Suh MD - Last Filed: 07/26/20 18:55> Cosign ED Attending [facility] Attestation: I was immediately available in the department for consultation throughout this patient's visit. I agree with documentation as above. Alessandra Suh MD
== END 2020-07-25 20:08 | disposition home or self-care (01) ==
PROVIDERS: Emergency Provider Nurse Practitioner Family
DX: L02.811 Cutaneous abscess of head [any part, except face] (principal); H66.92 Otitis media, unspecified, left ear; R59.9 Enlarged lymph nodes, unspecified; R50.9 Fever, unspecified
CPT/HCPCS: 10060; 83605; 85025; 99283; J2270

== ENCOUNTER 2020-12-24 16:00 | Emergency (ER) | payer OTHER, MEDICAID, SELFPAY ==
[2020-12-24 16:03] VITALS: BP 156/84
[2020-12-24 16:04] VITALS: PULSE 76; O2SAT 100
[2020-12-24 16:06] VITALS: BP 156/84; PULSE 66; RESP 16; TEMP 36.7; O2SAT 100; BMI 38.0
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
[2020-12-24 16:30] VITALS: O2SAT 100
[2020-12-24 16:31] VITALS: BP 137/87; PULSE 62; O2SAT 97
[2020-12-24] MEDS: ONDANSETRON 4 MG ODT PO (17:07)
--- NOTE | 2020-12-24 17:09 | PC.NURSE ---
C-spine cleared. C-collar removed.
[2020-12-24] MEDS: ONDANSETRON 4 MG ODT PREPACK 1 BOTTLE MISC (17:21)
== END 2020-12-24 17:22 | disposition home or self-care (01) ==
PROVIDERS: Emergency Provider Emergency Medicine
DX: S40.012A Contusion of left shoulder, initial encounter (principal); S09.90XA Unspecified injury of head, initial encounter; M54.2 Cervicalgia; R11.0 Nausea; R07.89 Other chest pain; V89.2XXA Person injured in unspecified motor-vehicle accident, traffic, initial encounter
CPT/HCPCS: 70450; 71045; 72125; 99284

== ENCOUNTER 2020-12-26 17:58 | Emergency (ER) | payer OTHER, SELFPAY ==
[2020-12-26 18:02] VITALS: BP 133/71; PULSE 96; RESP 16; TEMP 36.7; O2SAT 97
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
[2020-12-26] MEDS: HYDROCODONE/ACET 5/325 TABLET 1 TAB PO (19:02)
[2020-12-26] MEDS: IBUPROFEN 400 MG TABLET PO (19:02)
== END 2020-12-26 19:18 | disposition home or self-care (01) ==
PROVIDERS: Emergency Provider Emergency Medicine
DX: R51.9 Headache, unspecified (principal); F07.81 Postconcussional syndrome; S63.91XD Sprain of unspecified part of right wrist and hand, subsequent encounter; V89.2XXD Person injured in unspecified motor-vehicle accident, traffic, subsequent encounter; R11.0 Nausea; R60.0 Localized edema
CPT/HCPCS: 73130; 99283

== ENCOUNTER → 2024-08-28 11:01 | Outpatient (CLI) | payer BC, OTHER, SELFPAY ==
[2024-08-28 11:48] LABS: Influenza A - CEPHEID Flu A NEGATIVE (NEGATIVE); Influenza B - CEPHEID Flu B NEGATIVE (NEGATIVE); Respiratory Syncytial Virus Negative (Negative)
[2024-08-28 11:49] LABS: COVID-19 CEPHEID 4-PLEX PCR Negative (Negative)
== END ==
PROVIDERS: Visit Provider Nurse Practitioner Family
DX: R42 Dizziness and giddiness (principal)
CPT/HCPCS: 0241U

== ENCOUNTER → 2025-06-21 13:31 | Outpatient (CLI) | payer BC, SELFPAY ==
[2025-06-21 15:10] LABS: Add Manual Diff / Slide Review NO; Hematocrit 36.3 % (36-46); Hemoglobin 12.3 g/dL (12.0-16.0); Lymphocytes Absolute Auto 2500 /uL (1100-4500); Mean Corpuscular HGB Conc 34.0 % (30-36); Mean Corpuscular Hemoglobin 31.6 PG (26-34); Mean Corpuscular Volume 93.1 fL (80-100); Platelet Count 463 X10^3/uL (150-400)
[2025-06-21 15:34] LABS: Alanine Aminotransferase 8 IU/L (<35); Albumin 4.4 g/dL (3.5-5.0); Albumin Globulin Ratio 1.3 (1.0-2.8); Alkaline Phosphatase 84 U/L (38-126); Blood Urea Nitrogen 13 mg/dL (7-17); Calcium 9.6 mg/dL (8.4-10.2); Carbon Dioxide 26 mmol/L (22-32); Chloride 104 mmol/L (98-107); Cholesterol 253 mg/dL (140-199); Estimated Glomerular Filt Rate > 60 mL/min (>60); Globulin 3.3 g/dL (1.7-4.1); Glucose 89 mg/dL (70-99); HDL Cholesterol 57 mg/dL (40-60); HEMOLYSIS < 15 (0-50); Potassium 4.3 mmol/L (3.4-5.1); Sodium 136 mmol/L (137-145); Total Protein 7.7 g/dL (6.3-8.2); Triglycerides 66 mg/dL (35-150)
[2025-06-22 20:36] LABS: Deamidated Gliadin Ab IgA 19 units (0-19); Deamidated Gliadin Ab IgG 2 units (0-19); Immunoglobulin A,Qn 262 mg/dL (87-352)
== END ==
PROVIDERS: PCP Family Medicine; Referring Provider Family Medicine; Visit Provider Family Medicine
DX: Z00.00 Encounter for general adult medical examination without abnormal findings (principal); E78.5 Hyperlipidemia, unspecified; K57.90 Diverticulosis of intestine, part unspecified, without perforation or abscess without bleeding; R10.9 Unspecified abdominal pain
CPT/HCPCS: 36415; 80053; 80061; 82784; 83516; 85025